=== PATIENT | male | born 1970 | race Caucasian/White ===

== ENCOUNTER 2019-02-22 19:31 | Observation (INO) | payer OTHER ==
[~2019-02-22] VITALS: Ht 188 cm; Wt 104.3 kg
[2019-02-22] MEDS ORDERED: GLUCAGON FOR INJ 1 MG VIAL IV ONE (20:15)
[2019-02-22 21:01] LABS: BASOPHILS # (AUTO) 0.1 (0.0-0.1); BASOPHILS % 0.7 % (0.0-1.0); EOSINOPHILS # (AUTO) 0.3 (0.0-0.4); HEMOGLOBIN 16.2 g/dL (14.0-18.0); LYMPHOCYTES # (AUTO) 2.7 (1.0-3.2); LYMPHOCYTES % 30.4 % (18.0-39.1); MEAN CORPUSCULAR HEMOGLOBIN 31.2 pg (28-32); MEAN CORPUSCULAR HGB CONC 35.2 g/dL (31-35); MEAN CORPUSCULAR VOLUME 88.5 fL (81-99); MONOCYTES # (AUTO) 0.5 (0.2-0.8); MONOCYTES % 5.8 % (4.4-11.3); NEUTROPHILS # (AUTO) 5.4 (2.1-6.9); NEUTROPHILS % 59.8 % (38.7-80.0); PLATELET COUNT 281 x10e3/uL (140-360); RED CELL DISTRIBUTION WIDTH 13.8 % (11.7-14.4)
[2019-02-22 21:17] LABS: ALANINE AMINOTRANSFERASE 59 IU/L (0-55); ALBUMIN 4.6 g/dL (3.5-5.0); ALBUMIN/GLOBULIN RATIO 1.5 (0.8-2.0); ALKALINE PHOSPHATASE 73 IU/L (40-150); ANION GAP 15.3 mmol/L (8-16); BLOOD UREA NITROGEN 14 mg/dL (7-26); BUN/CREATININE RATIO 12 (6-25); CALCIUM 10.1 mg/dL (8.4-10.2); CARBON DIOXIDE 31 mmol/L (22-29); CHLORIDE 106 mmol/L (98-107); CREATINE KINASE 105 IU/L (30-200); EST GLOMERULAR FILTRATION RATE > 60 ML/MIN (60-); GLUCOSE 93 mg/dL (74-118); POTASSIUM 4.3 mmol/L (3.5-5.1); SODIUM 148 mmol/L (136-145)
[2019-02-22 21:19] LABS: AMYLASE 121 U/L (25-125); LIPASE 35 U/L (8-78)
[2019-02-22] MEDS ORDERED: HYDRALAZINE HCL 20 MG/ML VIAL IV PRN (21:30)
--- NOTE | 2019-02-22 23:12 | Diagnostic Imaging Report ---
EXAM: CT Chest, Abdomen and Pelvis WITH contrast INDICATION: ^R.O FOREIGN BODY ^[id number] ^2199 COMPARISON: None. TECHNIQUE: Chest, abdomen and pelvis were scanned utilizing a multidetector helical scanner from the lung apex to the pubic symphysis after administration of IV contrast. Coronal and sagittal reformations were obtained. Dose modulation, iterative reconstruction, and/or weight based adjustment of the mA/kV was utilized to reduce the radiation dose to as low as reasonably achievable. Routine protocol was performed. Scan was performed when during portal venous phase. IV CONTRAST: 100 mL of Isovue-370 ORAL CONTRAST: None. COMPLICATIONS: None RADIATION DOSE: Total DLP: 1062.24 mGy*cm Estimated effective dose: (DLP x 0.015 x size factor) mSv CTDIvol has been reviewed. It is below the limits set by the Radiation Protocol Committee (RPC). FINDINGS: LINES and TUBES: None. LUNGS AND AIRWAYS: The lungs are unremarkable. Airways are normal. PLEURA: The pleural spaces are clear. HEART AND MEDIASTINUM: The thyroid gland is normal. No mediastinal, hilar or axillary lymphadenopathy. The heart is normal in size.. There is no pericardial effusion. HEPATOBILIARY: No focal hepatic lesions. No biliary ductal dilation. GALLBLADDER: 2.5 cm peripherally calcified gallstone. No wall thickening. SPLEEN: No splenomegaly. Calcified granulomas. Lobulated contour. PANCREAS: No focal masses or ductal dilatation. ADRENALS: No adrenal nodules KIDNEYS/URETERS: Kidneys enhance symmetrically. No hydronephrosis. No cystic or solid mass lesions. No stones. GI TRACT: No abnormal distention, wall thickening, or evidence of bowel obstruction. Mildly patulous esophagus with air-fluid levels. There is a 1 x 0.7 x 1.9 cm hyperdense object in the mid to lower esophagus. There is also a 6 mm hyperdense structure at the gastroesophageal junction. Appendix is normal. PELVIC ORGANS/BLADDER: Unremarkable. LYMPH NODES: No lymphadenopathy. VESSELS: Unremarkable. PERITONEUM / RETROPERITONEUM: No free air or fluid. BONES: Degenerative changes of spine. SOFT TISSUES: Unremarkable. IMPRESSION: Mildly patulous esophagus with air-fluid levels which tapers at the gastroesophageal junction. There is a 1 x 0.7 x 1.9 cm hyperdense object in the mid to lower esophagus. There is also a 6 mm hyperdense structure at the gastroesophageal junction. Signed by: Dr. Joe Plummer MD on 02/22/2019 11:09 PM
[2019-02-22] MEDS ORDERED: SODIUM CHLORIDE 0.9% 1000ML 1,000 ML IV SCH (23:32)
[2019-02-23] VITALS (9 sets, daily range): BP systolic 119–159; BP diastolic 74–95
--- OUTSIDE RECORDS SUMMARY | 2019-02-23 00:18 | XMS REPORT ---
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 Allergies, Adverse Reactions, Alerts This patient has no known allergies or adverse reactions. Medications This patient has no known medications. Results Test Description Test Time Test Comments Text Results Atomic Results Result Comments CT CHEST W 2019-02-22 22:29:00 [place] [address] Patient Name: YAZMIN MENDIETA MR #: [id number] : 1970 Age/Sex: 48/M Req #: [id number] Adm Physician: Ordered by: QUINN WOO MD Report #: [id number] Location: ER Room/Bed: Procedure: [id number] CT/CT CHEST W Exam Date: 02/22/19 Exam Time: 2199 REPORT STATUS: Signed EXAM: CT Chest, Abdomen and Pelvis WITH contrast INDICATION: R.O FOREIGN BODY [id number] COMPARISON: None. TECHNIQUE: Chest, abdomen and pelvis were scanned utilizing a multidetector helical scanner from the lung apex to the pubic symphysis after administration of IV contrast. Coronal and sagittal reformations were obtained. Dose modulation, iterative reconstruction, and/or weight based adjustment of the mA/kV was utilized to reduce the radiation dose to as low as reasonably achievable. Routine protocol was performed. Scan was performed when during portal venous phase. IV CONTRAST: 100 mL of Isovue-370 ORAL CONTRAST: None. COMPLICATIONS: None RADIATION DOSE: Total DLP: 1062.24 mGy*cm Estimated effective dose: (DLP x 0.015 x size factor) mSv CTDIvol has been reviewed. It is below the limits set by the Radiation Protocol Committee (RPC). FINDINGS: LINES and TUBES: None. LUNGS AND AIRWAYS: The lungs are unremarkable. Airways are normal. PLEURA: The pleural spaces are clear. HEART AND MEDIASTINUM: The thyroid gland is normal. No mediastinal, hilar or axillary lymphadenopathy. The heart is normal in size.. There is no pericardial effusion. HEPATOBILIARY: No focal hepatic lesions. No biliary ductal dilation. GALLBLADDER: 2.5 cm peripherally calcified gallstone. No wall thickening. SPLEEN: No splenomegaly. Calcified granulomas. Lobulated contour. PANCREAS: No focal masses or ductal dilatation. ADRENALS: No adrenal nodules KIDNEYS/URETERS: Kidneys enhance symmetrically. No hydronephrosis. No cystic or solid mass lesions. No stones. GI TRACT: No abnormal distention, wall thickening, or evidence of bowel obstruction. Mildly patulous esophagus with air-fluid levels. There is a 1 x 0.7 x 1.9 cm hyperdense object in the mid to lower esophagus. There is also a 6 mm hyperdense structure at the gastroesophageal junction. Appendix is normal. PELVIC ORGANS/BLADDER: Unremarkable. LYMPH NODES: No lymphadenopathy. VESSELS: Unremarkable. PERITONEUM / RETROPERITONEUM: No free air or fluid. BONES: Degenerative changes of spine. SOFT TISSUES: Unremarkable. IMPRESSION: Mildly patulous esophagus with air-fluid levels which tapers at the gastroesophageal junction. There is a 1 x 0.7 x 1.9 cm hyperdense object in the mid to lower esophagus. There is also a 6 mm hyperdense structure at the gastroesophageal junction. Signed by: Dr. Joe Chavira MD on 02/22/2019 11:09 PM Dictated By: JOE CHAVIRA MD 08 Transcribed By: JACQUI on 02/22/192308 COPY TO: QUINN WOO MD CT ABDOMEN/PELVIS W 2019-02-22 22:29:[address] [place], [place] [address] Patient Name: YAZMIN MENDIETA MR #: [id number] : 1970 Age/Sex: 48/M Req #: [id number] Adm Physician: Ordered by: QUINN WOO MD Report #: [id number] Location: ER Room/Bed: Procedure: [id number] CT/CT ABDOMEN/PELVIS W Exam Date: 02/22/19 Exam Time: 2199 REPORT STATUS: Signed EXAM: CT Chest, Abdomen and Pelvis WITH contrast INDICATION: R.O FOREIGN BODY [id number] COMPARISON: None. TECHNIQUE: Chest, abdomen and pelvis were scanned utilizing a multidetector helical scanner from the lung apex to the pubic symphysis after administration of IV contrast. Coronal and sagittal reformations were obtained. Dose modulation, iterative reconstruction, and/or weight based adjustment of the mA/kV was utilized to reduce the radiation dose to as low as reasonably achievable. Routine protocol was performed. Scan was performed when during portal venous phase. IV CONTRAST: 100 mL of Isovue-370 ORAL CONTRAST: None. COMPLICATIONS: None RADIATION DOSE: Total DLP: 1062.24 mGy*cm Estimated effective dose: (DLP x 0.015 x size factor) mSv CTDIvol has been reviewed. It is below the limits set by the Radiation Protocol Committee (RPC). FINDINGS: LINES and TUBES: None. LUNGS AND AIRWAYS: The lungs are unremarkable. Airways are normal. PLEURA: The pleural spaces are clear. HEART AND MEDIASTINUM: The thyroid gland is normal. No mediastinal, hilar or axillary lymphadenopathy. The heart is normal in size.. There is no pericardial effusion. HEPATOBILIARY: No focal hepatic lesions. No biliary ductal dilation. GALLBLADDER: 2.5 cm peripherally calcified gallstone. No wall thickening. SPLEEN: No splenomegaly. Calcified granulomas. Lobulated contour. PANCREAS: No focal masses or ductal dilatation. ADRENALS: No adrenal nodules KIDNEYS/URETERS: Kidneys enhance symmetrically. No hydronephrosis. No cystic or solid mass lesions. No stones. GI TRACT: No abnormal distention, wall thickening, or evidence of bowel obstruction. Mildly patulous esophagus with air-fluid levels. There is a 1 x 0.7 x 1.9 cm hyperdense object in the mid to lower esophagus. There is also a 6 mm hyperdense structure at the gastroesophageal junction. Appendix is normal. PELVIC ORGANS/BLADDER: Unremarkable. LYMPH NODES: No lymphadenopathy. VESSELS: Unremarkable. PERITONEUM / RETROPERITONEUM: No free air or fluid. BONES: Degenerative changes of spine. SOFT TISSUES: Unremarkable.
[2019-02-23] MEDS ORDERED: SODIUM CHLORIDE 0.9% 50ML 50 ML ONE (01:31)
[2019-02-23] MEDS ORDERED: IOPAMIDOL 370 MG/ML 200 ML INFUS..BTL INJ ONE (01:32)
--- NOTE | 2019-02-23 03:00 | NUR ---
Patient arrived to the unit via walking with NAMRATA Sanchez nurse next to him. Patient is A&Ox3. Call light within reach. Received report from NAMRATA Sanchez nurse. Patient in no pain or distress.
--- NOTE | 2019-02-23 07:10 | NUR ---
Gave report to oncoming nurse. Patient in asleep in bed. call light within reach.
--- NOTE | 2019-02-23 07:30 | NUR ---
REC'D PT AAOX3, ON ROOM AIR, ON NPO FOR EGD, RIGHT AC IV INTACT AND PATENT. BED IN LOWEST POSITION, SIDE RAILS UP X2, AND CALL BAKER WITHIN REACH.
[2019-02-23 07:42] LABS: INR 0.92; PROTHROMBIN TIME 12.9 seconds (11.9-14.5)
--- NOTE | 2019-02-23 11:40 | NUR ---
PT TAKEN FOR PROCEDURE. WITH PT.
[2019-02-23] MEDS ORDERED: PANTOPRAZOLE 40 MG 10ML VIAL IV NR (13:00)
--- NOTE | 2019-02-23 13:24 | NUR ---
ENRIQUE FROM PACU CALLED WITH TO GIVE REPORT ABOUT PROCEDURE. VS STABLE AND NO PAIN. Eb ESPINOZA PLACED PT ON FULL LIQUID DIET.
--- NOTE | 2019-02-23 13:35 | NUR ---
PT RETURNED FROM EGD PROCEDURE.
[2019-02-23] MEDS: PANTOPRAZOLE 40 MG 10ML VIAL IV SCH (14:18)
[2019-02-23] MEDS ORDERED: FISH OIL 1,0001 EAC3 PO (14:27)
[2019-02-23] MEDS ORDERED: ATORVASTATIN CA20 MG PO (14:27)
[2019-02-23] MEDS ORDERED: HYDROXYZINE HCL25 MG PO (14:27)
[2019-02-23] MEDS ORDERED: METAMUCIL PO (14:27)
[2019-02-23] MEDS ORDERED: FENTANYL CITRATE/PF 100MCG/2 ML INJ ONE (18:29)
[2019-02-23] MEDS ORDERED: MIDAZOLAM HCL 2 MG/2 ML VIAL ONE (18:29)
[2019-02-23] MEDS ORDERED: LIDOCAINE HCL 2% LOCAL INJ 5 ML SDV VIAL INJ ONE (18:29)
--- NOTE | 2019-02-23 18:36 | NUR ---
PATIENT IS LAYING IN BED WITH NO S/S OF DISTRESS. BED IN LOWEST POSITION, SIDE RAILS UP X2, AND CALL BAKER WITHIN REACH.
--- NOTE | 2019-02-23 19:02 | NUR ---
RECEIVED REPORT FROM PREVIOUS NURSE. PATIENT IN BED. CALL LIGHT WITHIN REACH
--- NOTE | 2019-02-23 19:13 | NUR ---
SPOKE TO DR. LARES ABOUT PT BEING DISCHARGED. READ THE EGD RESULTS TO DR. LARES AND SAID SHE IS OKAY WITH PT GOING HOME BUT TO CHECK WITH Eb ESPINOZA IF OKAY. WILL PASS ON TO SALES VICE PRESIDENT NURSE.
--- NOTE | 2019-02-23 19:50 | Operative Report ---
DATE OF PROCEDURE: 02/23/2019 SURGEON: Bayron Lira MD PROCEDURE: EGD with biopsies and esophageal dilatation. INDICATIONS FOR EGD: Dysphagia to solids, foreign body in esophagus. MEDICATIONS: The patient was done under MAC, please see anesthesiologist's note. PROCEDURE IN DETAIL: With the patient in left lateral decubitus position, a flexible fiberoptic Olympus gastroscope was introduced into the esophagus under direct visualization without any difficulty. There were some longitudinal furrows and concentric rings noted in the esophagus suspicious for eosinophilic esophagitis. An ulcerated stricture was noted at the GE junction and apparently the foreign body that was lodged in the esophagus was already passed into the stomach. The mucosa overlying the antrum and the body revealed some patchy intense erythema and moderate edema. Biopsies were obtained and sent to stain for H pylori. Pylorus was of normal contour and shape. It was intubated with ease and the scope was advanced all the way to the second portion of the duodenum. The scope was then withdrawn slowly, mucosa overlying the proximal second portion and the duodenal bulb appeared to be within normal limits. The scope was then withdrawn back into the stomach and retroflexed, mucosa overlying the fundus and the cardia appeared to be within normal limits. The scope was then straightened out and was subsequently withdrawn. The esophageal stricture was then dilated to size 48-Welsh Giles. Biopsies were obtained from the esophagus on the way out to rule out eosinophilic esophagitis. The patient tolerated the procedure well. IMPRESSION: 1. Rule out eosinophilic esophagitis. 2. Esophageal stricture, ulcerated, GE junction dilated to size 48-Welsh Giles. 3. Gastritis, biopsied. Biopsies sent to stain for H pylori. PLAN: Follow up histology. Initiate Protonix 40 mg one p.o. q.a.m. a.c. and start full liquid diet. Bayron Lira MD [facility] /[id number] cc: Erendira Membreno MD
[2019-02-23] MEDS: DEXTROSE 5% 1,000 ML IV SCH (21:17)
--- NOTE | 2019-02-23 21:45 | NUR ---
Talked to Dr. Laxmi Lira about patient being discharged. Dr. Laxmi Lira said he can be discharged and make sure he get the prescription of Protonix 40 mg one pill every morning before breakfast with 3 refills.
[2019-02-23] MEDS ORDERED: PANTOPRAZOLE SO40 MG PO ×2 (21:52→21:54)
--- NOTE | 2019-02-23 22:00 | NUR ---
Talked to Dr. Membreno about patient being discharged, Dr. Membreno approved of the discharge. Told the patient they are discharged and requested to stay and would like to see Dr. Laxmi Lira before being discharged.
--- NOTE | 2019-02-23 22:40 | NUR ---
Dr. Laxmi Lira came to see the patient and recommended the patient to come see him at least once for biopsy result and to advance the diet to GI soft. He said he will put Protonix orders for the patient Addendum: 02/24/19 at 0652 by Renee Hayes RN Per Dr. Laxmi Lira, if no orders in chart, call his office and he will send the order to the pharmacy
[2019-02-24] MEDS: PANTOPRAZOLE 40 MG 10ML VIAL IV SCH (01:04)
[2019-02-24 04:00] VITALS: BP 129/71
[2019-02-24] MEDS: DEXTROSE 5% 1,000 ML IV SCH (05:36)
--- NOTE | 2019-02-24 06:59 | NUR ---
Gave report to oncoming nurse. Call light within reach. Patient in bed.
[2019-02-24 07:30] VITALS: BP 116/72
--- NOTE | 2019-02-24 07:30 | NUR ---
REC'D PT AAOX3, ON ROOM AIR, FLUIDS RUNNING VIA IV. AT THE BEDSIDE. BED IN LOWEST POSITION, SIDE RAILS UP X2, AND CALL BAKER WITHIN REACH.
[2019-02-24 07:49] VITALS: BP 116/72
--- NOTE | 2019-02-24 08:36 | NUR ---
DR. LARES ROUNDED ON PATIENT. GAVE THE OKAY TO GO HOME.
--- NOTE | 2019-02-24 08:48 | NUR ---
PROVIDED PT WITH DISCHARGE PAPERS AND EXPLAINED TO HIM ABOUT HIS PRESCRIPTION AND FOLLOW UPS. PATIENT UNDERSTOOD. REMOVED IV AND NO COMPLICATIONS TO SITE. NO S/S OF DISTRESS. ESCORTED PATIENT AND TO THE FRONT OF THE HOSPITAL.
--- NOTE | 2019-02-24 13:19 | Discharge Summary ---
HOSPITAL COURSE: Mr. Hamlin is a 48-year-old male with history of hypertension and hyperlipidemia, came to the emergency room because he was eating breakfast, egg and potatoes and the food got stuck in his esophagus, so he was not feeling good, so he decided to come to the emergency room. As per the patient, he has been having this problem for the last three years, but never saw anybody. He went for the EGD yesterday and that shows eosinophilic esophagitis with some stricture, so he was started on PPIs and the plan is to discharge him home today. PHYSICAL EXAMINATION: GENERAL: He is awake and alert, feeling better. VITAL SIGNS: Temperature is 96.6, blood pressure 116/72. HEART: Regular rate. LUNGS: Clear to auscultation. ABDOMEN: Soft. LABORATORY DATA: On the blood work, white count 8.99 and hemoglobin 16.2. Potassium 4.3 and creatinine is 1.20. Abdominal CT shows some mildly patulous esophagus with air-fluid levels, which tapers at the gastroesophageal junction. DISCHARGE DIAGNOSES: 1. Dysphagia. 2. Eosinophilic esophagitis with esophagus stricture. 3. Reflux. 4. Hypertension. 5. Hyperlipidemia. PLAN: The plan is to discharge the patient home. He had an EGD done yesterday. Continue home medications. He was started on Protonix. Follow up with Dr. Lira as directed by him. He is to call me or come back to the emergency room if any recurrent problem. MD MIKE Mena/PAVEL /[id number]
== END 2019-02-24 08:48 | disposition home or self-care (01) ==
LOC: ER 19:31 → ERHOLD 02-23 00:15 → MED/SURG 02-23 02:57
PROVIDERS: ADMIT Internal Medicine; ATTEND Internal Medicine
DX: K22.2 Esophageal obstruction (principal); K29.70 Gastritis, unspecified, without bleeding; R13.10 Dysphagia, unspecified; K20.0 Eosinophilic esophagitis; I10 Essential (primary) hypertension; E78.5 Hyperlipidemia, unspecified
CPT/HCPCS: 36415 ×2; 43239; 43248; 71260; 74177; 80053; 82150; 82550; 82553; 83690; 84484; 85025; 85610; 88305; 88312; 93005; 99284; C9113 ×2; G0378 ×2; J0360; J1610; J2001; J2250; J3010; J7070 ×2; Q9967; 43450